=== PATIENT | female | born 2000 | race Hispanic/Latino ===

== ENCOUNTER 2020-12-20 14:52 | Outpatient (RCR) | payer OTHER | END 2021-01-05 | LOC: PT 14:52 | PROVIDERS: ATTEND Specialist | DX: S93.401D Sprain of unspecified ligament of right ankle, subsequent encounter (principal); M62.81 Muscle weakness (generalized); M25.571 Pain in right ankle and joints of right foot; M25.471 Effusion, right ankle ==